=== PATIENT | male | born 1970 | race African-American/Black ===

== ENCOUNTER 2017-01-29 14:10 | Emergency (ER) | payer OTHER ==
[~2017-01-29] VITALS: Ht 182.9 cm; Wt 112.0 kg
--- NOTE | ~2017-01-29 | CR127 ---
[facility] A Service of [facility] & [facility] RADIOLOGY TEXT RESULTS PATIENT: OZZIE PANDYA LOCATION: [facility] : 72 UNIT #: [id number] AGE: [address]: Champ Costello MD SEX: M ORDER DR: [id number] [facility] [address] [place], [place] [address] [id number] E MR#: [id number] Acc #: [id number] NAME: OZZIE PANDYA : 1970 SEX: M STUDY DATE/TIME: 01/29/2017 16:30 UNIT: [facility] ROOM: STUDY DESCRIPTION: CR Foot Complete Min 3 View Rt Attending Physician: Champ Costello M.D. Ordering Physician: Champ Costello M.D. Primary Care Physician: Primary Care Physician No MEDICAL IMAGING REPORT This report is preliminary unless electronic signature is present EXAM Right foot 3 views INDICATION Right foot pain for years. Diabetes. No comparisons. FINDINGS No fracture or dislocation. Minimal calcaneal spurring. Vascular calcifications. IMPRESSION No acute findings. Vascular calcifications. Dictated by... Jamarcus Shultz M.D. THIS IS AN ELECTRONICALLY VERIFIED REPORT Jamarcus Shultz M.D. at 01/31/2017 5:01 PM Ronan TD: 01/30/2017 11:31 JOB #: [id number] MEDICAL IMAGING REPORT Page 1 of 1 COPY
[~2017-01-29 14:10] MED LIST: FAMVIR125 MG PO; GABAPENTIN400 MG PO; LANTUS100 UNITS/ SUBQ; LEVOTHYROXINE75 MCG PO; LIPITOR20 MG PO; LISINOPRIL10 MG PO; PREDNISONE PO
[2017-01-29 16:02] LABS: BASOPHIL% 0.4 % (0-2.5); EOSINOPHIL# 0.1 X10e3 (0-0.7); EOSINOPHIL% 1.9 % (0.0-7.0); HEMATOCRIT 36.5 % (38.0-50.0); HEMOGLOBIN 12.2 gm/dL (13.0-16.0); LYMPHOCYTE# 1.1 X10e3 (1.0-3.5); LYMPHOCYTE% 14.8 % (17.0-45.0); MEAN CELL VOLUME 94.3 FL (83-96); MEAN CORPUSCULAR HEMOGLOBIN 31.4 PG (28-34); MEAN CORPUSCULAR HGB CONC 33.3 g/dL (30-36); MEAN PLATELET VOLUME 9.4 FL (6.5-11.5); MONOCYTE# 0.7 X10e3 (0-1.0); MONOCYTE% 10.3 % (3.0-12.0); NEUTROPHIL# 5.3 X10e3 (1.5-7.1); NEUTROPHIL% 72.6 % (40-75); PLATELET COUNT 153 X10e3 (140-420); RED BLOOD COUNT 3.87 X10e (3.90-5.60); RED CELL DISTRIBUTION WIDTH 13.3 % (11.0-15.5); WHITE BLOOD COUNT 7.3 X10e3 (4.0-10.5)
[2017-01-29 16:05] LABS: DIFF IND NO
[2017-01-29 16:27] LABS: CALCIUM SERUM 8.9 mg/dL (8.4-10.2); GLOM FILT RATE Estimated 104.9 mL/min (>60); POTASSIUM 4.2 mmol/L (3.5-5.1)
== END 2017-01-29 17:20 | disposition home or self-care (01) ==
LOC: CED 14:10
PROVIDERS: Emergency Medicine
DX: E11.40 Type 2 diabetes mellitus with diabetic neuropathy, unspecified (principal); R23.8 Other skin changes; I10 Essential (primary) hypertension; E03.9 Hypothyroidism, unspecified; F17.200 Nicotine dependence, unspecified, uncomplicated; Z79.899 Other long term (current) drug therapy; Z79.4 Long term (current) use of insulin
CPT/HCPCS: 29405; 36415; 73630; 80048; 82947; 83605; 85025; 87040; 99284